=== PATIENT | male | born 1970 | race Caucasian/White ===

== ENCOUNTER → 2018-12-01 | Outpatient (CLI) | payer OTHER ==
--- NOTE | 2018-12-01 10:31 | XR ---
EXAMINATION TYPE: XR lumbar spine 2 or 3V DATE OF EXAM: 12/01/2018 CLINICAL HISTORY: Back pain for 1 to 2 years. Possible injury 2 years ago. TECHNIQUE: Frontal and lateral images of the lumbar spine are obtained. COMPARISON: None FINDINGS: There are 5 lumbar type vertebral bodies identified. The lumbar spine shows satisfactory alignment without evidence of acute fracture or dislocation. Vertebral body heights and disk space he ights are within normal limits. Mild/moderate anterior and lateral spurring L4-L5 level. Overlying so ft tissue is unremarkable. IMPRESSION: As above.
== END ==
LOC: RADXRMAIN 09:53
PROVIDERS: ATTEND Family Medicine
DX: M54.5 Low back pain (principal)
CPT/HCPCS: 72100